=== PATIENT | male | born 1965 ===

== ENCOUNTER → 2018-08-06 22:43 | Outpatient (REF) | payer SELFPAY ==
[2018-08-07 03:43] LABS: Add Manual Diff / Slide Review NO; Basophils Absolute Auto 0 /uL (0-100); Basophils Percent Auto 0.3 % (0-2); Eosinophils Absolute Auto 200 /uL (0-450); Eosinophils Percent Auto 3.5 % (2-4); Hematocrit 40.3 % (41-53); Hemoglobin 13.5 g/dL (13.5-17.5); Lymphocytes Absolute Auto 1500 /uL (1100-4500); Mean Corpuscular HGB Conc 33.5 % (30-36); Mean Corpuscular Hemoglobin 30.9 PG (26-34); Mean Corpuscular Volume 92.1 fL (80-100); Monocytes Absolute Auto 400 /uL (0-900); Monocytes Percent Auto 6.3 % (3-14); Neutrophils Absolute Auto 4000 /uL (1500-7000); Neutrophils Percent Auto 64.9 % (50-75); Platelet Count 266 X10^3/uL (150-400); Red Blood Cell Count 4.37 X10^6/uL (4.5-5.9); Red Cell Distribution Width 13.8 % (11.6-14.8); White Blood Cell Count 6.1 X10^3/uL (4.5-11.0)
[2018-08-07 03:49] LABS: Alanine Aminotransferase 41 IU/L (21-72); Albumin 4.4 g/dL (3.5-5.0); Albumin Globulin Ratio 1.2 (1.0-2.8); Alkaline Phosphatase 72 U/L (38-126); Aspartate Aminotransferase 27 IU/L (17-59); Bilirubin Total 0.7 mg/dL (0.2-1.3); Blood Urea Nitrogen 16 mg/dL (9-20); Calcium 9.6 mg/dL (8.4-10.2); Carbon Dioxide 30 mmol/L (22-32); Chloride 100 mmol/L (98-107); Cholesterol 228 mg/dL (140-199); Estimated Glomerular Filt Rate > 60.0 mL/min (>60); Globulin 3.6 g/dL (1.7-4.1); Glucose 58 mg/dL (70-100); HDL Cholesterol 49 mg/dL (40-60); HEMOLYSIS < 15 (0-50); LDL Cholesterol Calculated 158 mg/dL (<100); Sodium 142 mmol/L (137-145); Triglycerides 103 mg/dL (35-150)
[2018-08-07 05:07] LABS: Vitamin D 25 Hydroxy (D3) 26.2 ng/mL (30.0-100.0)
[2018-08-07 05:21] LABS: Thyroid Stimulating Hormone 1.35 uIU/mL (0.47-4.68)
[2018-08-07 05:32] LABS: Hemoglobin A1C% w Est Avg Glu 5.3 % (4.0-6.0)
[2018-08-07 05:47] LABS: HIV 1 and 2 Antibody NEGATIVE (NEGATIVE); Hep C Virus Ab w/Reflex Quant NEGATIVE s/c (NEGATIVE); Hepatitis B Surface Antigen NEGATIVE s/c (NEGATIVE)
[2018-08-10 14:08] LABS: Insulin Level Total 1.4 uIU/mL (2.0-19.6)
[2018-08-10 15:13] LABS: Hepatitis B Surf AB Imm QUANT < 5 mIU/mL (> 9)
[2018-08-10 15:26] LABS: RPR Screen Nonreactive (Nonreactive)
[2018-08-11 08:53] LABS: Hepatitis A Antibody IgM NONREACTIVE (NONREACTIVE); Hepatitis Acute Panel Interp 0.01 (NONREACTIVE); Hepatitis B Core Antibody IgM NONREACTIVE (NONREACTIVE); Hepatitis B Surface Antigen NONREACTIVE (NONREACTIVE); Hepatitis C Antibody NONREACTIVE
[2018-08-11 14:07] LABS: Albumin 4.4 g/dL (3.6-5.1); Sex Hormone Binding Globulin 57 nmol/L (10-50); Testosterone, Bioavailable 66.3 ng/dL (110.0-575.0); Testosterone, Total 404 ng/dL (250-1100)
== END ==
LOC: LAB 22:43
PROVIDERS: Visit Provider Family Medicine
DX: Z00.00 Encounter for general adult medical examination without abnormal findings (principal)
CPT/HCPCS: 36415; 80053; 80061; 80074; 82040; 82306; 83036; 83525; 84270; 84403; 84443; 85025; 86317; 86592; 86703; 86803; 87340